=== PATIENT | female | born 1995 | race Caucasian/White ===

== ENCOUNTER 2016-09-15 18:23 | Emergency (ER) | payer SELFPAY ==
[2016-09-15 19:11] VITALS: BP 113/69
--- NOTE | 2016-09-15 20:51 | Emergency Department Report ---
- General Chief complaint: Skin/Abscess/Foreign Body Stated complaint: SWALLOWED SEPTUM PIERCING /FEELS STUCK Time Seen by Provider: 09/15/16 20:09 Source: patient Mode of arrival: Ambulatory Limitations: No Limitations - History of Present Illness Initial comments: This is a 20-year-old female that presents with sore throat status post swallowing a metal nose ring last night. Patient stated when she woke up she did not realize she had a nose ring so she thinks she may self swallowed it. Patient denies any shortness of breath or chest pain, nausea vomiting, dyspnea, difficulty swallowing, drooling. Patient stated she put her fingers in her mouth to vomited but nothing came out. Patient does not seem toxic or ill in appearance. No signs of any distress noted. MD complaint: foreign body (1 cm round metal nose ring) -: Sudden, days(s) (1) Tetanus Up to Date: no Location: neck (sore throat) Severity: mild Severity scale (0 -10): 2 Quality: burning Consistency: constant Improves with: none Worsens with: other (swallowing) Context: none Associated symptoms: denies other symptoms Treatments Prior to Arrival: none - Related Data Previous Rx's Medication Instructions Recorded Last Taken Type Ibuprofen [Motrin 600 MG tab] 600 mg PO Q8H PRN 3 Days 09/15/16 Unknown Rx Allergies Allergy/AdvReac Type Severity Reaction Status Date / Time No Known Allergies Allergy Unverified 09/15/16 19:13 Abscess Boil HPI - HPI Chief Complaint: Skin/Abscess/Foreign Body Stated Complaint: SWALLOWED SEPTUM PIERCING /FEELS STUCK Time Seen by Provider: 09/15/16 20:09 Home Medications: Previous Rx's Medication Instructions Recorded Last Taken Type Ibuprofen [Motrin 600 MG tab] 600 mg PO Q8H PRN 3 Days 09/15/16 Unknown Rx Allergies/Adverse Reactions: Allergies Allergy/AdvReac Type Severity Reaction Status Date / Time No Known Allergies Allergy Unverified 09/15/16 19:13 ED Review of Systems ROS: Stated complaint: SWALLOWED SEPTUM PIERCING /FEELS STUCK Other details as noted in HPI Constitutional: denies: chills, fever Eyes: denies: eye pain, eye discharge, vision change ENT: throat pain. denies: ear pain Respiratory: denies: cough, orthopnea, shortness of breath, SOB with exertion, SOB at rest, stridor, wheezing Cardiovascular: denies: chest pain, palpitations Endocrine: no symptoms reported Gastrointestinal: denies: abdominal pain, nausea, diarrhea Genitourinary: denies: urgency, dysuria, discharge Musculoskeletal: denies: back pain, joint swelling, arthralgia Skin: denies: rash, lesions Neurological: denies: headache, weakness, paresthesias Psychiatric: denies: anxiety, depression Hematological/Lymphatic: denies: easy bleeding, easy bruising ED Past Medical Hx - Past Medical History Previous Medical History?: No - Surgical History Past Surgical History?: No - Social History Smoking Status: Never Smoker Substance Use Type: None - Medications Home Medications: Home Medications Medication Instructions Recorded Confirmed Last Taken Type Ibuprofen [Motrin 600 MG tab] 600 mg PO Q8H PRN 3 Days 09/15/16 Unknown Rx ED Physical Exam - General Limitations: No Limitations General appearance: alert, in no apparent distress - Head Head exam: Present: atraumatic, normocephalic - Eye Eye exam: Present: normal appearance, PERRL, EOMI Pupils: Present: normal accommodation - ENT ENT exam: Present: normal exam, normal orophraynx, mucous membranes moist, TM's normal bilaterally - Expanded ENT Exam Expanded Mouth exam: Present: normal external inspection, tongue normal. Absent: drooling, trismus, muffled voice, tongue elevation, laceration Teeth exam: Present: normal inspection Throat exam: Positive: normal inspection. Negative: tonsillar erythema, tonsillomegaly, tonsillar exudate, R peritonsillar mass, L peritonsillar mass - Neck Neck exam: Present: normal inspection, full ROM. Absent: tenderness, meningismus, lymphadenopathy, thyromegaly - Respiratory Respiratory exam: Present: normal lung sounds bilaterally. Absent: respiratory distress, wheezes, rales, rhonchi, stridor, chest wall tenderness, accessory muscle use, decreased breath sounds, prolonged expiratory - Cardiovascular Cardiovascular Exam: Present: regular rate, normal rhythm. Absent: systolic murmur, diastolic murmur, rubs, gallop - GI/Abdominal GI/Abdominal exam: Present: soft, normal bowel sounds. Absent: distended, tenderness, guarding, rebound, rigid - Extremities Exam Extremities exam: Present: normal inspection, full ROM, normal capillary refill. Absent: tenderness, pedal edema, joint swelling - Back Exam Back exam: Present: normal inspection, full ROM. Absent: tenderness, CVA tenderness (R), CVA tenderness (L) - Neurological Exam Neurological exam: Present: alert, oriented X3, CN II-XII intact, normal gait - Psychiatric Psychiatric exam: Present: normal affect, normal mood - Skin Skin exam: Present: warm, dry, intact, normal color. Absent: rash ED Course Vital Signs 09/15/16 19:08 Temperature 97.8 F Pulse Rate 89 Respiratory 16 Rate Blood Pressure 113/69 O2 Sat by Pulse 99 Oximetry - Reevaluation(s) Reevaluation #1: 09/15/16 20:55 Dr. Carlin was consulted about the patient and agrees to treatment plan. ED Medical Decision Making - Medical Decision Making Ed course: 20-year-old female that presents with sore throat status post swallowing metal 1 cm round nose ring 1- patient received ibuprofen 600 mg by mouth in the ED. 2- x-ray of the neck, chest, abdomen obtained to rule out foreign body: Negative for foreign body. 3- patient does not seem toxic or ill in appearance. No signs of distress noted. 4- I instructed the patient if symptoms worsen such as shortness of breath, chest pain, dyspnea, nausea vomiting to report back to emergency room 5- I also instructed the patient to follow up with her primary care doctor in 3- 5 days 6- at the time of discharge the patient does not seem toxic. Patient agrees with discharge plan and stated will follow-up with her primary care doctor. No further questions noted by the patient. Critical care attestation.: If time is entered above; I have spent that time in minutes in the direct care of this critically ill patient, excluding procedure time. ED Disposition Clinical Impression: Sore throat Disposition: DISCHARGED TO HOME OR SELFCARE Is pt being admited?: No Does the pt Need Aspirin: No Condition: Stable Additional Instructions: If symptoms worsen such as shortness of breath, chest pain, dyspnea, nausea vomiting to report back to emergency room Follow-up with your primary care doctor in 3-5 days Prescriptions: Ibuprofen [Motrin 600 MG tab] 600 mg PO Q8H PRN 3 Days PRN Reason: Pain Referrals: PRIMARY CARE, [Primary Care Provider] - 3-5 Days [facility] [Outside] - 3-5 Days [facility] [Outside] - 3-5 Days EDUARDO GROVES MD [Referring] - 3-5 Days CRIS BLACKWOOD MD [Referring] - 3-5 Days Forms: Work/School Release Form(ED)
[2016-09-15] MEDS ORDERED: BOOSTRIX IM ONE (20:52)
--- NOTE | 2016-09-15 22:33 | XRay Report ---
FINAL REPORT PROCEDURE: XR ABDOMEN 1V AP TECHNIQUE: Two view abdomen HISTORY: foreign body COMPARISON: Chest x-ray today FINDINGS: Moderate stool volume. No definable radiopaque foreign body is seen at this time. If symptoms and or concern persists recommend CT scan screening for better accuracy and detect ability. IMPRESSION: No obvious radiopaque foreign body seen
--- NOTE | 2016-09-15 22:44 | XRay Report ---
FINAL REPORT PROCEDURE: XR CHEST 1V AP TECHNIQUE: Chest radiograph anteroposterior view. CPT 05833 HISTORY: foreign body COMPARISON: No prior studies are available for comparison. FINDINGS: Heart: Normal. Mediastinum/Vessels: Normal Lungs/Pleural space: Normal. Bony thorax: No acute osseous abnormality. Life support devices: None. Foreign body: No radiopaque or metallic foreign body seen IMPRESSION: No acute cardiopulmonary abnormality. No foreign body seen
--- NOTE | 2016-09-15 22:45 | XRay Report ---
FINAL REPORT PROCEDURE: XR NECK SOFT TISSUE TECHNIQUE: AP lateral soft tissue neck HISTORY: foreign body COMPARISON: No prior studies are available for comparison. FINDINGS: No definite evidence of radiopaque foreign body. IMPRESSION: Negative
== END 2016-09-15 23:07 | disposition home or self-care (01) ==
LOC: ED 18:23
DX: J02.9 Acute pharyngitis, unspecified (principal)
CPT/HCPCS: 70360; 71010; 74000; 81025; 90471; 90715; 99283